=== PATIENT | male | born 1980 | race Caucasian/White ===

== ENCOUNTER 2018-12-26 06:22 | Day surgery (SDC) | payer OTHER ==
[2018-12-26] MEDS ORDERED: FENTAnyl 50 MCG/ML VIAL (08:11)
[2018-12-26] MEDS ORDERED: MIDAZOLAM 1 MG/ML 2 ML INJ (08:11)
== END 2018-12-26 11:07 | disposition home or self-care (01) ==
LOC: GIL 06:22
DX: K21.9 Gastro-esophageal reflux disease without esophagitis (principal); K29.60 Other gastritis without bleeding
CPT/HCPCS: 43239; 88305; 88312